=== PATIENT | female | born 1965 | race Caucasian/White ===

== ENCOUNTER → 2019-03-02 12:28 | Outpatient (BNVA) | payer OTHER, SELFPAY | PROVIDERS: Family Provider Family Medicine; PCP Family Medicine; Visit Provider Emergency Medicine | DX: J10.1 Influenza due to other identified influenza virus with other respiratory manifestations (principal); R68.89 Other general symptoms and signs; R73.9 Hyperglycemia, unspecified; R73.03 Prediabetes; R11.0 Nausea | CPT/HCPCS: 82947; 87070; 87804; 87880 ==

== ENCOUNTER → 2019-05-06 10:15 | Outpatient (BNVA) | payer OTHER, SELFPAY | PROVIDERS: Family Provider Family Medicine; PCP Family Medicine; Referring Provider Family Medicine; Visit Provider Family Medicine | DX: R73.03 Prediabetes (principal) | CPT/HCPCS: 80053; 80061; 83036 ==

== ENCOUNTER 2019-06-17 16:18 | Emergency (ER) | payer OTHER, SELFPAY ==
[2019-06-17 16:31] VITALS: BP 129/57; PULSE 70; RESP 18; TEMP 36.3; O2SAT 98; BMI 32.2
--- NOTE | 2019-06-17 16:42 | USR_ITS ---
PROCEDURE INFORMATION: Exam: US Duplex Right Lower Extremity Veins, Limited Exam date and time: 06/17/2019 5:27 PM Age: 53 years old Clinical indication: Pain; Leg, lower; Right; Additional info: Swelling, possible dvt, HX of dvt TECHNIQUE: Imaging protocol: Real-time Duplex ultrasound of the Right Lower Extremity with 2-D rogers scale, color Doppler flow and spectral waveform analysis with image documentation. Limited exam was focused on the right lower extremity veins. COMPARISON: No relevant prior studies available. FINDINGS: Right deep veins: Findings of mild subacute nonocclusive string deep venous thrombosis distal femoral vein into the proximal popliteal vein. Remainder of the deep venous structures of the right lower extremity intact without evidence for deep venous thrombosis or venous occlusion. Right superficial veins: Unremarkable. Saphenofemoral junction is patent without thrombus. Soft tissues: Unremarkable. US/[place] [address] IMPRESSION: Findings of mild subacute nonocclusive string deep venous thrombosis distal femoral vein into the popliteal vein right lower extremity.
--- NOTE | 2019-06-17 17:23 | W.ED.EXTPRO ---
HPI - Extremity Problem General: Chief complaint: Extremity Injury, Lower Stated complaint: r leg pain and swelling Time Seen by Provider: 06/17/19 17:18 History of Present Illness: HPI Narrative: Edith is a nice 53-year-old female who comes in complaining of right lower extremity pain and swelling. Patient's had a history of DVTs in the past and was concerned she had developed another. Pain is primarily in the lower right calf. The leg is not swollen or warm or cold to the touch. She denies any chest pain, shortness of breath or any other complaints. Associated symptoms: Deny chest pain, fever(s) or rash Review of Systems General: Reports: other (negative unless marked) Const: Denies: fever, chills, body aches, fatigue, malaise or diaphoresis Eyes: Denies: change in vision or blurry vision ENMT: Denies: throat pain, painful swallowing, hoarseness, ear pain, ear discharge, Change in hearing or nasal discharge Card: Denies: chest pain, palpitations, irregular heart rhythm, syncope, pre-syncope, shortness of breath on exertion or shortness of breath when lying down Resp: Denies: shortness of breath, productive cough, non-productive cough, wheezing, coughing up blood or chest congestion GI: Denies: abdominal pain, nausea, vomiting, vomiting blood, coffee grounds in vomit, diarrhea, constipation, cramping, blood in stool or black tarry stool : Denies: flank pain, painful urination, urinary frequency, urinary urgency, decreased urine ouput, urinary incontinence or blood in urine Musc: Reports: extremity pain; Denies: neck pain, back pain, extremity swelling, joint pain, joint swelling, joint warmth or joint stiffness Skin/Breast: Denies: rash, skin tenderness or yellow skin Neuro: Denies: headache, numbness in extremities, weakness in extremities, changes in sensation, lack of coordination, difficulty walking, dizziness, vertigo or confusion Endo: Denies: excessive thirst, tired all the time, cold intolerance, excessive sweating, flushing or hot flashes Demetri/Lymph: Denies: easy bruising, easy bleeding, petechiae or enlarged lymph nodes All/Imm: Denies: hives, throat swelling, tongue swelling, facial swelling or acute wheezing PFSH ED PFSH: Medical History History of DVT (deep vein thrombosis) Prediabetes Family History Father Diabetes Brother Diabetes Social History Smoking and tobacco status: never smoked Second hand smoke exposure: No Smoking risk assessment/counseling performed?: No Alcohol intake: never Desire information about alcohol rehabilitation?: No Counseling given: No Desire information about substance/drug rehabilitation?: No Counseling given: No Adopted: No Caregiver/support person: No Physical Exam Const: COMMON NORMALS: no apparent distress, oriented x3, no limitations, healthy appearing and well nourished EXAM LIMITATIONS: no altered mental status GENERAL APPEARANCE: cooperative, well kempt and well developed ORIENTATION/CONSCIOUSNESS: Yes awake HENMT: COMMON NORMALS: normocephalic, head/scalp atraumatic, hearing grossly normal bilaterally, external ears normal, EAC's normal, external nose normal and moist oral mucous membranes HEAD & SCALP: normal to inspection, normocephalic and atraumatic FACE & SINUS: normal facial exam and face symmetric NOSE: external nose normal and nares normal EXTERNAL EAR: Yes external ears normal EXTERNAL AUDITORY CANAL: EAC's normal MOUTH: oral and palatal mucosa normal and tongue normal Eye: COMMON NORMALS: PERRL, EOMs intact bilaterally, conjunctivae normal and no scleral icterus GENERAL EYE: normal appearance of both eyes and normal light reflex CONJUNCTIVA: Yes conjunctivae normal SCLERA: sclerae normal CORNEA: Yes corneas normal PUPIL: Yes PERRL DIRECT OPHTHALMOSCOPY: Yes normal light reflex Neck/C-Spine: COMMON NORMALS: full ROM, no lymphadenopathy, supple, no meningeal signs and no JVD GENERAL: Yes normal visual inspection and Yes trachea midline CERVICAL SPINE: Yes cervical ROM normal Chest: COMMONS NORMALS: inspection of chest normal and palpation of chest normal Resp: COMMON NORMALS: normal respiratory effort, no retractions, no use of accessory muscles and clear to auscultation bilaterally EFFORT & INSPECTION: Yes able to speak in complete sentences AUSCULTATION: clear to auscultation bilaterally Cardio: COMMON NORMALS: no JVD, regular rate, regular rhythm, S1 normal heart sound, S2 normal heart sound, no gallops, no clicks, no murmurs and no rub JUGULAR VENOUS DISTENTION: no JVD RATE: regular rate RHYTHM: regular rhythm HEART SOUNDS: S1 normal and S2 normal GI: COMMON NORMALS: soft to palpation, non-tender, no hepatosplenomegaly and no masses INSPECTION: Yes normal to inspection PALPATION: Yes soft and Yes no hepatosplenomegaly : COMMON NORMALS: Yes no CVA tenderness BLADDER/KIDNEY EXAM: Yes no CVA tenderness Back/Pelvis: COMMON NORMALS: no CVA tenderness, thoracic and lumbar spine normal to inspection, no thoracic nor lumbar tenderness and thoraco-lumbar ROM normal Extremity: COMMON NORMALS: normal to inspection, full ROM, normal capillary refill, no joint enlargement, no clubbing, cyanosis or edema and no calf tenderness Neuro: COMMON NORMALS: oriented x3, CN's II-XII intact bilaterally, moves all extremities, no focal motor deficits and no sensory deficits noted MENINGEAL SIGNS: Yes no meningeal signs Psych: COMMON NORMALS: mental status grossly normal, thought process normal, cooperative, affect normal, speech normal and activity/motor behavior normal APPEARANCE: Yes well kempt SPEECH: Yes normal speech THOUGHT PROCESS: normal thought process Skin: COMMON NORMALS: no rashes or lesions noted, skin turgor normal, no jaundice, no petechiae and no mottling GENERAL SKIN EXAM: no rashes or lesions noted and turgor normal Course Vital Signs: Vital signs: Vital Signs Temperature 97.3 F L 06/17/19 16:31 Pulse Rate 67 06/17/19 19:05 Respiratory Rate 17 06/17/19 19:05 Blood Pressure 131/67 06/17/19 19:05 Pulse Oximetry 98 06/17/19 19:05 MDM - Extremity (Nontraumatic) MDM Narrative: Medical decision making narrative: Edith is a very nice 53-year-old female who comes in with right lower extremity pain. Ultrasound does reveal a very small string-like nonocclusive DVT of the right distal femoral vein into the popliteal vein. The patient has no chest pain, no shortness of breath, no palpitations, no syncope or near syncope, or anything else to suggest a pulmonary embolism. Her vital signs are stable without tachycardia, tachypnea and no hypoxia. I reviewed the case in full with Dr. mendoza our on-call ice house supervisor and he states it is not necessary to do a CT of the chest that the patient is asymptomatic. He recommends anticoagulation with Eliquis and to follow-up with her doctor as she will likely need lifelong anticoagulation for a second DVT. I reviewed all this plan with the patient and she is in agreement. Lab Data: Attestation: I reviewed the patient's lab results. Labs: Lab Results 06/17/19 06/17/19 06/17/19 Range/Units 17:26 17:26 17:26 WBC 7.9 (4.0-10.0) 10^3/ uL RBC 5.16 (4.1-5.3) 10^6/u L Hgb 13.4 (11.5-15.3) g/dL Hct 44.1 (37.0-47.0) % MCV 85.5 (81-99) fL MCH 26.0 L (28.0-34.0) pg MCHC 30.4 (30.0-36.0) g/dL RDW 14.6 (12.1-15.1) % Plt Count 297 (130-400) 10^3/c mm MPV 10.3 (7.4-10.4) fL Neut % (Auto) 55.1 % Lymph % (Auto) 34.8 % [place] % (Auto) 6.7 % Eos % (Auto) 2.5 % Baso % (Auto) 0.6 % Neut # (Auto) 4.3 (1.8-7.7) 10^3/u L Lymph # (Auto) 2.7 (0.8-4.8) 10^3/u L [place] # (Auto) 0.5 (0.2-0.9) 10^3/u L Eos # (Auto) 0.2 (0.0-0.8) 10^3/u L Baso # (Auto) 0.1 (0.0-0.1) 10^3/u L Nucleated RBC % (a uto) 0 % Nucleated RBCs # 0.0 /100WBC PT 12.60 (10.5-13.3) SECO NDS INR 0.92 (0.8-1.2) D-Dimer <= 0.27 (0-0.59) ug/mIFE U Sodium 142 (136-145) mmol/L Potassium 4.2 (3.5-5.1) mmol/L Chloride 102 (98-107) mmol/L Carbon Dioxide 29 (22-29) mmol/L Anion Gap 15.2 (5-19) BUN 19 (6-20) mg/dL Creatinine 0.7 (0.5-0.9) mg/dL GFR Calculation 86.9 L (90-130) mL/min Glucose 110 (65-115) mg/dL Calculated Osmolal ity 291 (285-295) mOsm/k g Calcium 9.9 (8.5-10.5) mg/dL Imaging Data^: US Vascular: Radiologist's impression: [facility] [address] [place] [address] Ultrasound Report Signed Patient: Edith Diaz Unit #: [id number] : 1965 Age/Sex: 53 / F ADM Date: 06/17/19 Loc: ER Room/Bed: Attending Dr: Ordering Provider/Ordering MD: Elisa Edwards Sr, CONTINUOUS IMPROVEMENT FACILITATOR-DIVINA Date of Service: 06/17/19 Procedure(s): [place] [address] Accession Number(s): [id number] Report Number: [id number] PROCEDURE INFORMATION: Exam: US Duplex Right Lower Extremity Veins, Limited Exam date and time: 06/17/2019 5:27 PM Age: 53 years old Clinical indication: Pain; Leg, lower; Right; Additional info: Swelling, possible dvt, HX of dvt TECHNIQUE: Imaging protocol: Real-time Duplex ultrasound of the Right Lower Extremity with 2-D rogers scale, color Doppler flow and spectral waveform analysis with image documentation. Limited exam was focused on the right lower extremity veins. COMPARISON: No relevant prior studies available. FINDINGS: Right deep veins: Findings of mild subacute nonocclusive string deep venous thrombosis distal femoral vein into the proximal popliteal vein. Remainder of the deep venous structures of the right lower extremity intact without evidence for deep venous thrombosis or venous occlusion. Right superficial veins: Unremarkable. Saphenofemoral junction is patent without thrombus. Soft tissues: Unremarkable. US/[place] [id number] IMPRESSION: Findings of mild subacute nonocclusive string deep venous thrombosis distal femoral vein into the popliteal vein right lower extremity. Dictated By: Randall Gee Signed By: Randall Gee Signed Date/Time: 06/17/191802 DD/ 01 Discharge Plan Discharge Patient Disposition: Home, Self-Care Clinical Impression: DVT (deep venous thrombosis) Qualifiers: DVT location: lower extremity Affected thrombotic vein of extremity: popliteal Chronicity: acute Laterality: right Qualified Code(s): I82.431 - Acute embolism and thrombosis of right popliteal vein Condition: Stable Prescriptions: New Eliquis DVT-PE Treat 30D Start 5 mg (74 tabs) tablets,dose pack See Rx Instructions .ROUTE .COMPLEX Qty: 74 RF: 0 No Action acetaminophen [Tylenol Extra Strength] 500 mg tablet 1,000 mg PO Q6H PRNRF: 0 ibuprofen 200 mg tablet 400 mg PO Q8H RF: 0 Discharge Orders: Discharge Order (Routine); Ordered 06/17/19 Ordered By: Loni Greenberg Referrals: Scarlet Chaves MD [Primary Care Provider] - 1-3 days (Follow-up with Dr. Chaves as soon as possible to discuss your need for possible lifelong anticoagulation for recurrent DVT) Discharge Diet: Usual diet Discharge Activity: Increase activity as tolerated Patient Instructions: Deep Venous Thrombosis (ED) Activity Restrictions/Additional Instructions: Please return to the ER immediately for any of the signs or symptoms listed on your discharge instruction sheets, worsening/changing of your symptoms, you are not getting better as quickly as expected, or for ANY other cause or concerns. Take your Eliquis that has been dispensed home with you in the morning at 5 AM then take your prescription as written. You can take 1 last dose of the 10 mg from your prescription as she were given that first dose here. Be certain to follow-up with your doctor as soon as possible for discussion about the need for lifelong anticoagulation. Return to ER for chest pain, shortness of breath, weakness, you pass out or nearly pass out, or for any other cause for concern. Discharge Date/Time: 06/17/19 19:06 Coding Level of Care Code ED Radio Repairer Domestic for Tobin Fwd Exam Comprehensive
[2019-06-17 17:31] LABS: Basophils # 0.1 10^3/uL (0.0-0.1); Basophils % 0.6 %; Eosinophils # 0.2 10^3/uL (0.0-0.8); Eosinophils % 2.5 %; Hematocrit 44.1 % (37.0-47.0); Hemoglobin 13.4 g/dL (11.5-15.3); Lymphocytes # 2.7 10^3/uL (0.8-4.8); Lymphocytes % 34.8 %; Mean Corpuscular HGB Conc 30.4 g/dL (30.0-36.0); Mean Corpuscular Volume 85.5 fL (81-99); Mean Platelet Volume 10.3 fL (7.4-10.4); Monocytes # 0.5 10^3/uL (0.2-0.9); Monocytes % 6.7 %; Neutrophils # 4.3 10^3/uL (1.8-7.7); Neutrophils % 55.1 %; Nucleated Red Blood Cells % 0 %; Platelet Count 297 10^3/cmm (130-400); Red Blood Count 5.16 10^6/uL (4.1-5.3); Red Cell Distribution Width 14.6 % (12.1-15.1); White Blood Count 7.9 10^3/uL (4.0-10.0)
[2019-06-17 17:40] LABS: INR 0.92 (0.8-1.2)
[2019-06-17 17:42] LABS: D Dimer <= 0.27 ug/mIFEU (0-0.59)
[2019-06-17 17:48] LABS: Anion Gap 15.2 (5-19); Blood Urea Nitrogen 19 mg/dL (6-20); Calcium 9.9 mg/dL (8.5-10.5); Carbon Dioxide 29 mmol/L (22-29); Chloride 102 mmol/L (98-107); Glomerular Filtration Rate 86.9 mL/min (90-130); Glucose 110 mg/dL (65-115); Osmolality Calculated 291 mOsm/kg (285-295); Potassium 4.2 mmol/L (3.5-5.1); Sodium 142 mmol/L (136-145)
[2019-06-17] MEDS: enoxaparin 80 mg/0.8 mL Syringe SUBCUT (17:55)
[2019-06-17 18:00] VITALS: PULSE 63; RESP 17; O2SAT 100
[2019-06-17] MEDS: apixaban 5 mg Tablet 10 MG PO (19:04)
[2019-06-17 19:05] VITALS: BP 131/67; PULSE 67; RESP 17; O2SAT 98
== END 2019-06-17 19:06 | disposition home or self-care (01) ==
PROVIDERS: Nurse Practitioner Family; Emergency Provider Emergency Medicine; Family Provider Family Medicine; PCP Family Medicine
DX: I82.431 Acute embolism and thrombosis of right popliteal vein (principal); Z86.718 Personal history of other venous thrombosis and embolism; Z83.3 Family history of diabetes mellitus
CPT/HCPCS: 12345; 36415; 80048; 85025; 85378; 85610; 93971; 96372; 99282; 99283; J1650

== ENCOUNTER 2019-07-06 08:26 | Outpatient (CLI) | payer OTHER, SELFPAY ==
--- NOTE | 2019-07-06 08:45 | USCV_ITS ---
Edith Diaz Age: 54 Gender: F : 1965 Exam Date: 07/06/2019 08:47 Ordering Phys: Scarelt Chaves MD Technologist: Jackie Han Exam Location: [facility] [place] Indication: FOLLOW UP ON RECENT RT LE DVT HISTORY: Recent DVT Rt leg and today increased pain in Rt ankle PROCEDURES: Venous duplex imaging was performed in only the right lower extremity. The following venous structures were evaluated: common femoral vein, profunda vein, proximal portion of the greater saphenous vein, superficial femoral vein, and the popliteal vein. In addition, the posterior tibial and peroneal trunk were evaluated. Serial compression, augmentation maneuvers, and spectral Doppler flow evaluation were performed. FINDINGS: No DVT observed in any vessel examined Comparsion 06/17/19 CONCLUSIONS No evidence of right lower extremity DVT. The previously described thrombus in the femoral vein/popliteal vein is no longer seen today. Tyron Solis MD (Electronically Signed) Final Date: 06 Jul 2019 16:19 S
== END 2019-07-06 08:27 | disposition home or self-care (01) ==
LOC: RAD 08:32
PROVIDERS: Family Provider Family Medicine; PCP Family Medicine; Visit Provider Family Medicine
DX: Z86.718 Personal history of other venous thrombosis and embolism (principal)
CPT/HCPCS: 93971

== ENCOUNTER → 2019-11-08 17:50 | Outpatient (BNVA) | payer OTHER, SELFPAY | PROVIDERS: Family Provider Family Medicine; PCP Family Medicine; Visit Provider Family Medicine | DX: I82.409 Acute embolism and thrombosis of unspecified deep veins of unspecified lower extremity (principal); R73.03 Prediabetes; I82.431 Acute embolism and thrombosis of right popliteal vein | CPT/HCPCS: 83036 ==

== ENCOUNTER 2020-01-24 20:52 | Emergency (ER) | payer OTHER, SELFPAY ==
[2020-01-24 20:59] VITALS: BP 138/83; PULSE 67; RESP 14; TEMP 36.7; O2SAT 98; BMI 32.2
--- NOTE | 2020-01-24 21:10 | USCV_ITS ---
Edith Diaz Age: 54 Gender: F : 1965 Exam Date: 01/24/2020 22:45 Ordering Phys: Noble Ferguson Technologist: Aida Rodríguez [place] [facility] [place]: LEG PAIN HISTORY: Lower extremity pain. PROCEDURES: Venous duplex imaging was performed in only the right lower extremity. The following venous structures were evaluated: common femoral vein, profunda vein, proximal portion of the greater saphenous vein, superficial femoral vein, and the popliteal vein. In addition, the posterior tibial and peroneal trunk were evaluated. Serial compression, augmentation maneuvers, and spectral Doppler flow evaluation were performed. FINDINGS: Normal 2-D Doppler and augmentation and compressibility throughout the lower extremity venous structures. Additional imaging through the proximal calf veins also reveals no thrombus. Limited evaluation of the greater saphenous vein is patent with no thrombus. CONCLUSIONS No DVT right lower extremity. Dr. Bea Small DO (Electronically Signed) Final Date: 25 January 2020 08:07 S
--- NOTE | 2020-01-24 21:18 | W.ED.GENADLT ---
HPI - General Adult General: Chief complaint: General Medical Stated complaint: blood clot Time Seen by Provider: 01/24/20 21:10 History of Present Illness: HPI narrative: Patient is a 54-year-old female comes to the ED with episode of right lower extremity pain. Patient has past medical history of a blood clot in right leg and is currently on Eliquis. Patient says last blood clot was back in June 2019. Patient says pain occurred in right leg just prior to arrival while she was walking around the store. Pain was located in the lower right leg near the ankle, which is similar to her previous blood clot pain. Pain was described as a burning feeling. She says it has since subsided and she just has some mild pain there currently. She also said at the time she did have some pain in her calf as well but that has since resolved. Denies any injury or trauma to cause acute pain. She denies any chest pain, shortness of breath, hemoptysis, fever, chills, bladder or bowel symptoms, abdominal pain, nausea/vomiting. Associated symptoms: Deny chest pain, dyspnea, headache(s), nausea, rash, palpitations or vomiting Review of Systems Const: Denies: fever(s), chills or fatigue Eyes: Denies: change in vision or eye discomfort ENMT: Denies: throat pain, odynophagia, nasal discharge or nasal congestion Card: Denies: chest pain, palpitations, edema, swelling of feet/ankles, dyspnea on exertion or orthopnea Resp: Denies: dyspnea, productive cough or non-productive cough GI: Denies: abdominal pain, nausea, vomiting, diarrhea, constipation or hematochezia : Denies: flank pain, dysuria or hematuria Musc: Reports: extremity pain (Episodic right lower extremity pain that has since resolved. Nontraumatic.); Denies: neck pain, back pain or extremity swelling Skin/Breast: Denies: rash or new lesions Neuro: Denies: headache(s), numbness in extremities or weakness in extremities [facility] ED PFSH: Medical History History of DVT (deep vein thrombosis) Prediabetes Surgical History H/O: hysterectomy Family History Father Diabetes Brother Diabetes Social History Smoking and tobacco status: never smoked Second hand smoke exposure: No Smoking risk assessment/counseling performed?: No Alcohol intake: never Desire information about alcohol rehabilitation?: No Counseling given: No Desire information about substance/drug rehabilitation?: No Counseling given: No Adopted: No Caregiver/support person: No Physical Exam Const: COMMON NORMALS: no acute distress, patient oriented x3, healthy appearing and alert GENERAL APPEARANCE: cooperative and comfortable HENMT: COMMON NORMALS: normocephalic HEAD & SCALP: normocephalic MOUTH: Normal oral and palatal mucosa present THROAT: posterior oropharynx normal and uvula midline Neck/C-Spine: COMMON NORMALS: supple GENERAL: Yes normal visual inspection Resp: COMMON NORMALS: normal respiratory effort, No retractions, No use of accessory muscles and clear to auscultation bilaterally EFFORT & INSPECTION: Yes able to speak in complete sentences, No tachypneic and No respiratory distress AUSCULTATION: clear to auscultation bilaterally Cardio: COMMON NORMALS: regular rate, regular rhythm, S1 normal heart sound present, S2 normal heart sound present, No gallops present (Cardio), No clicks present (Cardio), No murmurs present (Cardio) and Peripheral pulses 2+ throughout RATE: regular rate RHYTHM: regular rhythm HEART SOUNDS: S1 normal heart sound present and S2 normal heart sound present PERIPHERAL PULSES: Peripheral pulses 2+ throughout GI: COMMON NORMALS: Normal to inspection, nondistended, normoactive bowel sounds present, Soft to palpation, non-tender and no masses PALPATION: Yes Soft to palpation : COMMON NORMALS: Yes no CVA tenderness BLADDER/KIDNEY EXAM: Yes no CVA tenderness Back/Pelvis: COMMON NORMALS: no CVA tenderness Extremity: COMMON NORMALS: normal to inspection and no pedal edema NARRATIVE EXTREMITY EXAM: Right leg?no calf tenderness upon palpation. pedal pulse 2+ right lower extremity. Neuro: COMMON NORMALS: patient oriented x3 and moves all extremities SENSORIUM/ORIENTATION: Yes alert Skin: GENERAL SKIN EXAM: dry skin Course Vital Signs: Vital signs: Vital Signs Temperature 98.0 F 01/24/20 20:59 Pulse Rate 64 01/24/20 22:32 Respiratory Rate 18 01/24/20 22:32 Blood Pressure 121/75 01/24/20 22:32 Pulse Oximetry 98 01/24/20 22:32 MDM - General Adult MDM Narrative: Medical decision making narrative: Patient is a 54-year-old female comes to the ED with right leg pain. Patient has a history of DVTs (had one in June 2019) and is currently on Eliquis. She says pain she had today resembles past blood clot pain. Pain has since resolved. Denies any chest pain, shortness of breath or hemoptysis. Physical exam shows no calf tenderness or any swollen nodules palpated. Pedal pulse 2+ and no edema in the right lower extremity. Ultrasound venous duplex showed no blood clots or DVTs. Patient was discharged and told to continue taking all home meds as previously prescribed. Return to ED precautions given. Patient understood and agreed with plan. Imaging Data^: US Vascular: Attestation: I personally reviewed and interpreted this imaging study as follows: Radiologist's impression: Ultrasound venous duplex right lower extremity--prelim report?no no blood clot or DVT seen. Discharge Plan Discharge Patient Disposition: Home Clinical Impression: Pain in right leg, History of DVT (deep vein thrombosis) Condition: Stable Prescriptions: No Action acetaminophen [Tylenol Extra Strength] 500 mg tablet 1,000 mg PO Q6H PRN (Reason: Pain) RF: 0 ibuprofen 200 mg tablet 400 mg PO Q8H PRN (Reason: FEVER/PAIN) RF: 0 apixaban 5 mg tablet 5 mg PO BID 30 Days Qty: 60 RF: 11 Discharge Orders: Discharge Order (Routine); Ordered 01/24/20 Ordered By: Noble Ferguson Referrals: Scarlet Chaves MD [Primary Care Provider] - Discharge Diet: Regular Discharge Activity: Resume usual activity Activity Restrictions/Additional Instructions: Follow-up with medical provider as directed in the next 7 to 10 days. Continue all home medications as prescribed. Return to the ER or your medical provider if condition worsens. Please read and understand discharge instructions. If any questions, please ask. Coding Level of Care Code ED Shipfitter Apprentice for Tobin Fwian Exam Comprehensive
[2020-01-24 22:32] VITALS: BP 121/75; PULSE 64; RESP 18; O2SAT 98
[2020-01-24 23:32] VITALS: BP 122/72; PULSE 67; RESP 20; O2SAT 95
== END 2020-01-24 23:33 | disposition home or self-care (01) ==
PROVIDERS: Emergency Provider Physician Assistant; PCP Family Medicine
DX: M79.604 Pain in right leg (principal); Z86.718 Personal history of other venous thrombosis and embolism
CPT/HCPCS: 12345; 93971; 99281; 99282

== ENCOUNTER → 2020-09-18 14:46 | Outpatient (BNVA) | payer OTHER, SELFPAY | PROVIDERS: PCP Family Medicine; Visit Provider Nurse Practitioner Family | DX: R07.9 Chest pain, unspecified (principal); R53.83 Other fatigue; R07.89 Other chest pain; G47.33 Obstructive sleep apnea (adult) (pediatric); E11.65 Type 2 diabetes mellitus with hyperglycemia | CPT/HCPCS: 71046; 80053; 83036; 84443; 85025 ==

== ENCOUNTER 2020-10-04 20:00 | Outpatient (CLI) | payer OTHER, SELFPAY | END 2020-10-04 20:01 | disposition home or self-care (01) | LOC: SLEEP 10-05 11:12 | PROVIDERS: PCP Family Medicine; Visit Provider Nurse Practitioner Family | DX: G47.33 Obstructive sleep apnea (adult) (pediatric) (principal) | CPT/HCPCS: 95810 ==

== ENCOUNTER 2020-12-25 10:48 | Emergency (ER) | payer OTHER, SELFPAY ==
--- NOTE | 2020-12-25 11:03 | USCV_ITS ---
Edith Diaz Age: 55 Gender: F : 1965 Exam Date: 12/25/2020 11:46 Ordering Phys: Luma Chavez MD Technologist: POLLY Exam Location: [facility] – [place] Indication: EVAL DVT PROCEDURES: Venous duplex imaging was performed in only the right lower extremity. The following venous structures were evaluated: common femoral vein, profunda vein, proximal portion of the greater saphenous vein, superficial femoral vein, and the popliteal vein. In addition, the posterior tibial and peroneal trunk were evaluated. Serial compression, augmentation maneuvers, and spectral Doppler flow evaluation were performed. FINDINGS: Normal 2-D Doppler and augmentation and compressibility throughout the lower extremity venous structures. Additional imaging through the proximal calf veins also reveals no thrombus. Limited evaluation of the greater saphenous vein is patent with no thrombus. CONCLUSIONS No DVT right lower extremity. Dr. Bea Small DO (Electronically Signed) Final Date: 25 December 2020 13:29 S
[2020-12-25 11:21] VITALS: BP 151/93; PULSE 72; RESP 17; TEMP 36.9; O2SAT 98; BMI 31.8
--- NOTE | 2020-12-25 11:54 | W.ED.EXTPRO ---
HPI - Extremity Problem General: Chief complaint: Extremity Problem,Nontraumatic Stated complaint: RIGHT ANKLE AND KNEE, PT THINKS A BLOOD CLOT Time Seen by Provider: 12/25/20 11:04 History of Present Illness: HPI Narrative: 55-year-old female presents emergency room complaining of right ankle pain. It began a couple days ago after she had gone out to visit event where she walked up a lot of stairs the following day she noticed some swelling and aching in her ankle is bothering her again today. She has no calf pain or swelling or restricted to the right ankle. 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 She has not missed any doses or run out of any of the medicine. She denies any chest pain or shortness of breath. MD Complaint: joint swelling and joint pain Associated symptoms: Deny chest pain, fever(s) or rash Review of Systems Const: Denies: fever(s), chills, body aches, change in appetite, fatigue or malaise ENMT: Denies: throat pain, ear or mastoid pain, nasal discharge or nasal congestion Card: Denies: chest pain, edema, dyspnea on exertion or orthopnea Resp: Denies: dyspnea, productive cough or non-productive cough GI: Denies: abdominal pain, nausea, vomiting, hematemesis, coffee ground emesis, diarrhea, constipation, bloating, hematochezia or melena : Denies: flank pain, difficulty voiding, dysuria, urinary frequency or urinary urgency Skin/Breast: Denies: rash or pruritus PFSH ED PFSH: Medical History History of DVT (deep vein thrombosis) Prediabetes Surgical History H/O: hysterectomy Family History Father Diabetes Brother Diabetes Social History Smoking and tobacco status: never smoked Second hand smoke exposure: No Smoking risk assessment/counseling performed?: No Alcohol intake: never Desire information about alcohol rehabilitation?: No Counseling given: No Desire information about substance/drug rehabilitation?: No Counseling given: No Adopted: No Caregiver/support person: No Physical Exam Const: COMMON NORMALS: no acute distress GENERAL APPEARANCE: cooperative and comfortable ORIENTATION/CONSCIOUSNESS: Yes awake, Yes oriented to person, Yes oriented to place and Yes oriented to time HENMT: COMMON NORMALS: normocephalic, atraumatic and hearing grossly normal bilaterally HEAD & SCALP: normocephalic and atraumatic Neck/C-Spine: COMMON NORMALS: no JVD Lymph: LYMPHATIC: no lymphadenopathy noted and no lymphedema noted Resp: COMMON NORMALS: normal respiratory effort, No retractions, No use of accessory muscles and clear to auscultation bilaterally AUSCULTATION: clear to auscultation bilaterally Cardio: COMMON NORMALS: no JVD, regular rate, regular rhythm and No murmurs present (Cardio) RATE: regular rate RHYTHM: regular rhythm GI: COMMON NORMALS: Soft to palpation and No hepatosplenomegaly present AUSCULTATION: Yes normoactive bowel sounds PALPATION: Yes Soft to palpation, No Tenderness to palpation present (GI), No Guarding due to palpation present (GI) and Yes No hepatosplenomegaly present Extremity: COMMON NORMALS: normal to inspection, capillary refill normal, no clubbing, cyanosis or edema, no calf tenderness and no pedal edema Neuro: SENSORIUM/ORIENTATION: Yes oriented to person, Yes oriented to place and Yes oriented to time Skin: COMMON NORMALS: no rashes or lesions noted GENERAL SKIN EXAM: no rashes or lesions noted Course Vital Signs: Vital signs: Vital Signs Temperature 98.4 F 12/25/20 11:21 Pulse Rate 72 12/25/20 11:21 Respiratory Rate 17 12/25/20 11:21 Blood Pressure 151/93 12/25/20 11:21 Pulse Oximetry 98 12/25/20 11:21 MDM - Extremity (Nontraumatic) MDM Narrative: Medical decision making narrative: Reviewed imaging with the patient. No sign of blood clot. Recommend elevation. Suspect some of her symptoms are due to osteoarthritis she can continue the Voltaren gel however she should use it cautiously in combination with the meloxicam. Continue anticoagulation as previously prescribed follow-up with primary care as needed Discharge Plan Discharge Patient Disposition: Home Clinical Impression: Arthralgia of ankle, right Condition: Stable Prescriptions: No Action apixaban 5 mg tablet 5 mg PO BID 30 Days Qty: 60 RF: 11 meloxicam 15 mg tablet 15 mg PO DAILY 30 Days Qty: 30 RF: 2 diclofenac sodium [Voltaren Arthritis Pain] 1 % gel 4 g topical QID Qty: 100 RF: 2 Discharge Orders: Discharge ED (Routine); Ordered 12/25/20 Ordered By: Kostas Murphy Referrals: Scarlet Chaves MD [Primary Care Provider] - Discharge Diet: Usual diet Discharge Activity: Increase activity as tolerated Patient Instructions: Opioid Safety Activity Restrictions/Additional Instructions: Follow-up with your primary care doctor as needed. Return to emergency room if you have any worsening or changes symptoms. Coding Level of Care Code ED [employer] Techn[employer] for [employer] F[employer] Exam Comprehensive
== END 2020-12-25 12:24 | disposition home or self-care (01) ==
PROVIDERS: Emergency Provider Family Medicine; PCP Family Medicine
DX: M25.571 Pain in right ankle and joints of right foot (principal); Z79.01 Long term (current) use of anticoagulants; Z86.718 Personal history of other venous thrombosis and embolism
CPT/HCPCS: 93971; 99281

== ENCOUNTER → 2021-10-10 14:30 | Outpatient (BNVA) | payer BC, OTHER, SELFPAY | PROVIDERS: PCP Family Medicine; Visit Provider Family Medicine | DX: I82.409 Acute embolism and thrombosis of unspecified deep veins of unspecified lower extremity (principal); J30.9 Allergic rhinitis, unspecified; R73.03 Prediabetes; R94.4 Abnormal results of kidney function studies; Z13.220 Encounter for screening for lipoid disorders; Z13.6 Encounter for screening for cardiovascular disorders; J30.1 Allergic rhinitis due to pollen; G47.33 Obstructive sleep apnea (adult) (pediatric); Z86.718 Personal history of other venous thrombosis and embolism; Z68.35 Body mass index [BMI] 35.0-35.9, adult | CPT/HCPCS: 80048; 83036 ==

== ENCOUNTER → 2022-01-06 14:14 | Outpatient (BNVA) | payer BC, OTHER, SELFPAY | PROVIDERS: PCP Family Medicine; Visit Provider Family Medicine | DX: E11.9 Type 2 diabetes mellitus without complications (principal); Z13.220 Encounter for screening for lipoid disorders; Z13.6 Encounter for screening for cardiovascular disorders | CPT/HCPCS: 80061; 83036 ==

== ENCOUNTER → 2022-07-08 12:18 | Outpatient (BNVA) | payer BC, OTHER, SELFPAY | PROVIDERS: PCP Family Medicine; Visit Provider Nurse Practitioner Family | DX: J02.9 Acute pharyngitis, unspecified (principal); Z20.818 Contact with and (suspected) exposure to other bacterial communicable diseases | CPT/HCPCS: 87071; 87880 ==

== ENCOUNTER → 2022-07-14 08:26 | Outpatient (BNVA) | payer BC, OTHER, SELFPAY | PROVIDERS: PCP Family Medicine; Visit Provider Family Medicine | DX: E11.9 Type 2 diabetes mellitus without complications (principal) | CPT/HCPCS: 80048; 83036 ==

== ENCOUNTER → 2023-01-12 08:39 | Outpatient (BNVA) | payer BC, OTHER, SELFPAY | PROVIDERS: PCP Family Medicine; Visit Provider Family Medicine | DX: E11.9 Type 2 diabetes mellitus without complications (principal) | CPT/HCPCS: 80053; 80061; 83036 ==

== ENCOUNTER → 2023-06-16 08:42 | Outpatient (BNVA) | payer BC, OTHER, SELFPAY | PROVIDERS: PCP Family Medicine; Visit Provider Family Medicine | DX: E11.9 Type 2 diabetes mellitus without complications (principal) | CPT/HCPCS: 80048; 83036 ==

== ENCOUNTER → 2023-12-16 09:23 | Outpatient (BNVA) | payer BC, OTHER, SELFPAY | PROVIDERS: PCP Family Medicine; Visit Provider Family Medicine | DX: E11.9 Type 2 diabetes mellitus without complications (principal) | CPT/HCPCS: 80053; 80061; 83036 ==

== ENCOUNTER → 2024-06-29 10:25 | Outpatient (BNVA) | payer BC, OTHER, SELFPAY | PROVIDERS: PCP Family Medicine; Visit Provider Family Medicine | DX: E11.9 Type 2 diabetes mellitus without complications (principal) | CPT/HCPCS: 80053; 80061; 83036 ==

== ENCOUNTER → 2025-01-23 15:06 | Outpatient (BNVA) | payer OTHER, SELFPAY | PROVIDERS: PCP Family Medicine; Visit Provider Family Medicine | DX: E11.9 Type 2 diabetes mellitus without complications (principal); E78.1 Pure hyperglyceridemia | CPT/HCPCS: 80048; 83036 ==